=== PATIENT | female | born 1975 | race Caucasian/White ===

== ENCOUNTER 2016-12-27 13:12 | Emergency (ER) | payer SELFPAY ==
[~2016-12-27] VITALS: Ht 170.2 cm; Wt 67.0 kg
[2016-12-27 13:20] VITALS: Ht 170.2 cm; Wt 67.0 kg
== END 2016-12-27 15:44 | disposition left against medical advice (07) ==
LOC: FTE 13:12
DX: Z53.21 Procedure and treatment not carried out due to patient leaving prior to being seen by health care provider (principal)